=== PATIENT | female | born 1985 | race American Indian/Alaskan Native ===

== ENCOUNTER 2016-07-13 14:17 | Emergency (ER) | payer SELFPAY ==
[2016-07-13 14:59] VITALS: BP 135/78
--- NOTE | 2016-07-13 15:26 | Emergency Department Report ---
Chief Complaint: Dyspnea/Respdistress Stated Complaint: SOB / BACK PAIN Time Seen by Provider: 07/13/16 15:18 - HPI History of Present Illness: 31 y/ female complain of shortness of breath and body ache x 1 day.pt complain of coughing at present . - ROS Review of Systems: per HPI - Exam Vital Signs: Vital Signs 07/13/16 14:54 Temperature 102.4 F H Pulse Rate 128 H Respiratory 24 Rate Blood Pressure 135/78 O2 Sat by Pulse 100 Oximetry Physical Exam: GENERAL: The patient is well-developed and well-nourished. Patient is in NAD. HENT: Normocephalic. Atraumatic. Patient has moist mucous membranes. Throat: No erythema, swelling or exudates. EYES: Extraocular motions are intact, PERRL NECK: Supple. No meningitic signs are noted. There is no adenopathy noted. CHEST/LUNGS: Clear to auscultation bilaterally. No wheezing, rales or rhonchi noted. There is no respiratory distress noted. HEART/CARDIOVASCULAR: Regular rate and rhythm. Normal S1 S2. No murmurs, rubs , clicks, or gallops. ABDOMEN: Abdomen is soft, nontender.. Bowel sounds normoactive. There is no abdominal distention. Negative rebound tenderness. : Deferred. SKIN: There is no rash. There is no edema. There is no diaphoresis. NEURO: The patient is A&Ox3. The patient has no focal neurologic deficits. MUSCULOSKELETAL: There is no tenderness or deformity. There is no limitation range of motion. PSYCH: Pt has appropriate mood and affect. MSE screening note: Focused history and physical exam performed. Due to findings the following was ordered: ED Disposition for MSE Condition: Stable
[2016-07-13] MEDS ORDERED: TORADOL IM ONE (15:29)
[2016-07-13 16:02] LABS: Basophils % (Auto) 0.2 % (0.0-1.8); Eosinophils % (Auto) 0.1 % (0.0-4.3); Hematocrit 38.3 % (30.3-42.9); Mean Corpuscular HGB Conc 32 % (30-34); Mean Corpuscular Volume 73 fl (79-97); Platelet Count 199 K/mm3 (140-440); Red Blood Count 5.23 M/mm3 (3.65-5.03); White Blood Count 6.2 K/mm3 (4.5-11.0)
[2016-07-13 16:19] LABS: Mean Corpuscular Hemoglobin 23 pg (28-32)
[2016-07-13 16:22] LABS: Anion Gap 22 mmol/L; BUN/Creatinine Ratio 11.25; Blood Urea Nitrogen 9 mg/dL (7-17); Calcium 9.3 mg/dL (8.4-10.2); Carbon Dioxide 20 mmol/L (22-30); Chloride 98.1 mmol/L (98-107); Glucose 105 mg/dL (65-100); Potassium 3.7 mmol/L (3.6-5.0); Sodium 136 mmol/L (137-145)
--- NOTE | 2016-07-14 14:39 | ED Elopement Review ---
ED Pt Elopement review - Results review Lab results: Laboratory Tests 07/13/16 07/13/16 15:46 15:46 WBC 6.2 RBC 5.23 H Hgb 12.0 Hct 38.3 MCV 73 L MCH 23 L MCHC 32 RDW 13.0 L Plt Count 199 Lymph % (Auto) 4.4 L [place] % (Auto) 9.2 H Eos % (Auto) 0.1 Baso % (Auto) 0.2 Lymph # 0.3 L [place] # 0.6 Eos # 0.0 Baso # 0.0 Seg Neutrophils % 86.1 H Seg Neutrophils # 5.3 Carbon Dioxide 20 L BUN 9 Creatinine 0.8 Estimated GFR > 60 BUN/Creatinine Ratio 11.25 Glucose 105 H Calcium 9.3 - Call Back decision Pt Call Back Decision: No action required
== END 2016-07-13 22:06 | disposition left against medical advice (07) ==
LOC: ED 14:17
DX: R06.02 Shortness of breath (principal); M79.1 Myalgia; R05 Cough; Z53.21 Procedure and treatment not carried out due to patient leaving prior to being seen by health care provider
CPT/HCPCS: 36415; 80048; 85025; 87400; 93005; 93010; J1885

== ENCOUNTER 2019-03-05 22:24 | Emergency (ER) | payer SELFPAY ==
[2019-03-05] MEDS ORDERED: NACL 0.9% 1000 ML 1,000 ML IV ONE (22:53)
[2019-03-05 23:31] LABS: Basophils % (Auto) 0.7 % (0.0-1.8); Eosinophils # (Auto) 0.3 K/mm3 (0.0-0.4); Eosinophils % (Auto) 5.4 % (0.0-4.3); Hematocrit 38.6 % (30.3-42.9); Hemoglobin 12.5 gm/dl (10.1-14.3); Lymphocytes # (Auto) 2.1 K/mm3 (1.2-5.4); Lymphocytes % (Auto) 40.7 % (13.4-35.0); Mean Corpuscular HGB Conc 33 % (30-34); Mean Corpuscular Volume 74 fl (79-97); Monocytes # (Auto) 0.4 K/mm3 (0.0-0.8); Platelet Count 225 K/mm3 (140-440); Red Blood Count 5.22 M/mm3 (3.65-5.03)
--- NOTE | 2019-03-05 23:37 | Emergency Department Report ---
ED General Adult HPI - General Chief complaint: Dyspnea/Respdistress Stated complaint: SOB,RAPID HEARTBEAT,8WK PREG Time Seen by Provider: 03/05/19 22:50 Source: patient Mode of arrival: Ambulatory Limitations: No Limitations - History of Present Illness Initial comments: Patient is a 33-year-old female who is presenting with 1 week of shortness of breath mostly with exertion. Patient states she has some mild cough as well which is dry and nonproductive. Patient denies any lower extremity swelling or chest pain. Patient is approximately 8 weeks . Patient states during her last she was diagnosed with multiple small pulmonary emboli. Patient was on blood thinners for approximately a year and it was taken off his medications. Patient states she feels similar - Related Data Previous Rx's Medication Instructions Recorded Last Taken Type ALBUTEROL Inhaler (OR & NICU) 2 puff IH QID PRN #1 inhalation 03/06/19 Unknown Rx [ProAir HFA Inhaler] Allergies Allergy/AdvReac Type Severity Reaction Status Date / Time No Known Allergies Allergy Verified 10/26/15 12:02 ED Review of Systems ROS: Stated complaint: SOB,RAPID HEARTBEAT,8WK PREG Other details as noted in HPI Comment: All other systems reviewed and negative ED Past Medical Hx - Past Medical History Previous Medical History?: Yes Hx Hypertension: Yes (after ) Hx Congestive Heart Failure: Yes (after ) Hx Pulmonary Embolism: Yes (after ) - Surgical History Past Surgical History?: Yes Additional Surgical History: - Social History Smoking Status: Never Smoker Substance Use Type: None - Medications Home Medications: Home Medications Medication Instructions Recorded Confirmed Last Taken Type ALBUTEROL Inhaler (OR & NICU) 2 puff IH QID PRN #1 inhalation 03/06/19 Unknown Rx [ProAir HFA Inhaler] ED Physical Exam - General Limitations: No Limitations General appearance: alert, in no apparent distress - Head Head exam: Present: atraumatic, normocephalic - Eye Eye exam: Present: normal appearance, PERRL, EOMI - ENT ENT exam: Present: mucous membranes moist - Neck Neck exam: Present: normal inspection - Respiratory Respiratory exam: Present: normal lung sounds bilaterally. Absent: respiratory distress, wheezes, rales, rhonchi, chest wall tenderness - Cardiovascular Cardiovascular Exam: Present: normal rhythm, tachycardia, normal heart sounds. Absent: systolic murmur, diastolic murmur, rubs, gallop - GI/Abdominal GI/Abdominal exam: Present: soft, normal bowel sounds. Absent: distended, tenderness, guarding, rebound - Extremities Exam Extremities exam: Present: normal inspection - Back Exam Back exam: Present: normal inspection - Neurological Exam Neurological exam: Present: alert, oriented X3 - Psychiatric Psychiatric exam: Present: normal affect, normal mood - Skin Skin exam: Present: warm, dry, intact, normal color. Absent: rash ED Course Vital Signs 03/05/19 22:37 Temperature 98.1 F Pulse Rate 99 H Respiratory 20 Rate Blood Pressure 142/70 O2 Sat by Pulse 100 Oximetry ED Medical Decision Making - Lab Data Result diagrams: 03/05/19 23:03 03/05/19 23:03 - Radiology Data CTA neg for pulm mbolism - Medical Decision Making Cousin the patient has a history of pulmonary embolus and has symptoms that are worrisome for a pulmonary embolus patient was consented for CTA of the chest. Pulmonary embolus was found at this time. Patient also has no infiltrates seen. Patient's was hydrated and will be discharged home with an inhaler to help with her lung capacity. Patient to follow up with her primary care. Critical care attestation.: If time is entered above; I have spent that time in minutes in the direct care of this critically ill patient, excluding procedure time. ED Disposition Clinical Impression: Dyspnea on minimal exertion Disposition: -01 TO HOME OR SELFCARE Is pt being admited?: No Does the pt Need Aspirin: No Condition: Stable Instructions: Dyspnea (ED) Time of Disposition: 00:45
[2019-03-05 23:39] LABS: BUN/Creatinine Ratio 20; Blood Urea Nitrogen 10 mg/dL (7-17); Calcium 9.3 mg/dL (8.4-10.2); Hemolysis Index 8
--- NOTE | 2019-03-06 00:10 | Cat Scan Report ---
CTA CHEST WITH IV CONTRAST INDICATION: MAIN: SOB, tachycardia, History of multiple PE during preg. 100 ML OMNIPAQUE 350. TECHNIQUE: Axial CT images were obtained through the chest after injection of 100 cc Omnipaque 350 IV contrast. 3 plane MIP reconstructions were produced. All CT scans at this location are performed using CT dose reduction for ALARA by means of automated exposure control. COMPARISON: None available. FINDINGS: Contrast opacification is good. Exam is limited secondary to respiratory motion artifact PULMONARY ARTERIES: No pulmonary emboli. THORACIC AORTA: No acute abnormality. HEART: Normal. CORONARY ARTERIES: No significant calcification. PLEURA: No pleural effusion. No pneumothorax. LYMPH NODES: No significant adenopathy. LUNGS: No acute air space or interstitial disease. ADDITIONAL FINDINGS: None. UPPER ABDOMEN: No acute findings. SKELETAL STRUCTURES: No significant osseous abnormality. IMPRESSION: 1. No CT evidence for pulmonary embolism. 2. No acute findings. Signer Name: Refugio Christian MD Signed: 03/06/2019 12:05 AM Workstation Name: [id number]
[2019-03-06 01:51] VITALS: BP 136/89
== END 2019-03-06 00:55 | disposition home or self-care (01) ==
LOC: ED 22:24
DX: R06.00 Dyspnea, unspecified (principal)
CPT/HCPCS: 36415; 71275; 80048; 83880; 84484; 85025; 93005; 93010; 96360; 99284; J7030; Q9967

== ENCOUNTER 2019-07-27 11:01 | Emergency (ER) | payer MEDICAID ==
[2019-07-27 11:18] VITALS: BP 141/93
[2019-07-27] MEDS ORDERED: ACETAMINOPHEN 325 MG TAB ONE (12:56)
--- NOTE | 2019-07-27 12:57 | Event Note ---
ED Screening Note Date of service: 07/27/19 Time: 12:53 ED Screening Note: 34 y o f presents with fever x 1 day cc of flank pain with carrasco, This initial assessment/diagnostic orders/clinical plan/treatment(s) is/are subject to change based on patients health status, clinical progression and re- assessment by fellow clinical providers in the ED. Further treatment and workup at subsequent clinical providers discretion. Patient/guardian urged not to elope from the ED as their condition may be serious if not clinically assessed and managed. Initial orders include: fever 103 in triage, tylenol in traige labs, ua, upt, cxr acc eval
[2019-07-27] MEDS ORDERED: IBUPROFEN 800 MG TAB PO ONE (13:32)
--- NOTE | 2019-07-27 13:33 | Emergency Department Report ---
Minor Respiratory - HPI Chief Complaint: Back Pain/Injury Stated Complaint: FLU SYM 2DAYS/LOWER BACK PAIN Time Seen by Provider: 07/27/19 13:29 Duration: 2 Days Pain Location: Chest Severity: moderate Minor Respiratory: Yes Able to Tolerate Fluids, Yes Cough, Yes Sick Contacts, Yes Fever, No Rhinorrhea, No Sore Throat, No Ear Pain, No Hemoptysis, No Chest Pain, No Shortness of Breath Other History: 34 yo comes to ER with 2 day hx of fever, mild cough and myalgia. Febrile but non ill appearing on admit to the [facility]. ED Review of Systems ROS: Stated complaint: FLU SYM 2DAYS/LOWER BACK PAIN Other details as noted in HPI Comment: All other systems reviewed and negative ED Past Medical Hx - Past Medical History Previous Medical History?: Yes Hx Hypertension: Yes (after ) Hx Congestive Heart Failure: Yes (after ) Hx Pulmonary Embolism: Yes (after ) - Surgical History Past Surgical History?: Yes Additional Surgical History: - Social History Smoking Status: Never Smoker Substance Use Type: None - Medications Home Medications: Home Medications Medication Instructions Recorded Confirmed Last Taken Type Albuterol INH(or & Nicu Only) 2 puff IH QID PRN #1 inhalation 07/27/19 Unknown Rx [ProAir HFA Inhaler] Azithromycin [Zithromax Z-NANCY] 250 mg PO DAILY #6 tablet 07/27/19 Unknown Rx Benzonatate [Tessalon Perles] 100 mg PO Q12H PRN #20 capsule 07/27/19 Unknown Rx Fluticasone [Flonase] 1 spray NS QDAY #1 bottle 07/27/19 Unknown Rx Minor Respiratory Exam - Exam General: Vital signs noted. No distress. Alert and acting appropriately. HEENT: Yes Pharyngeal Erythema, Yes Moist Mucous Membranes, No Pharyngeal Exudates, No Rhinorrhea, No Conjuctival Injection, No Frontal Tenderness, No Maxillary Tenderness Ear: Neither TM Bulge, Neither TM Erythema, Neither EAC Pain, Neither EAC Discharge Neck: Yes Supple, No Adenopathy Lungs: Yes Good Air Exchange, No Wheezes, No Ronchi, No Stridor, No Cough, No Labored Respirations, No Retractions, No Use of Accessory Muscles, No Other Abnormal Lung Sounds Heart: Yes Regular, No Murmur Abdomen: Yes Normal Bowel Sounds, No Tenderness, No Peritoneal Signs Skin: No Rash, No Edema Neurologic: Alert and oriented, no deficits. Musculoskeletal: Unremarkable. ED Course Vital Signs 07/27/19 07/27/19 11:08 12:52 Temperature 101.0 F H 103.0 F H Pulse Rate 122 H 134 H Respiratory 18 Rate Blood Pressure 141/93 O2 Sat by Pulse 100 Oximetry ED Medical Decision Making - Radiology Data Radiology results: report reviewed, image reviewed - Medical Decision Making Labs 07/27/19 Unknown Ur Reducing Substances Not Reportable Urine Bilirubin Neg Urine Ictotest Not Reportable Urine RBC (Auto) 4.0 U Epithel Cells (Auto) 4.0 Urine HCG, Qual Negative Vital Signs 07/27/19 07/27/19 11:08 12:52 Temperature 101.0 F H 103.0 F H Pulse Rate 122 H 134 H Respiratory 18 Rate Blood Pressure 141/93 O2 Sat by Pulse 100 Oximetry xray noted medicated in ER dc home with dc instructions for interval follow up in 48 hours. ambulatory taking po - Differential Diagnosis uri/pna/bronchitis/influenza Critical care attestation.: If time is entered above; I have spent that time in minutes in the direct care of this critically ill patient, excluding procedure time. ED Disposition Clinical Impression: Fever, URTI (acute upper respiratory infection), PNA (pneumonia) Disposition: DC-01 TO HOME OR SELFCARE Is pt being admited?: No Does the pt Need Aspirin: No Condition: Stable Instructions: Community-acquired Pneumonia (ED) Additional Instructions: STAY WELL HYDRATED MEDS ORDERED TODAY MOTRIN OR TYLENOL OVER THE COUNTER FOR FEVER FOLLOW UP WITH PCP IN 48 HOURS FOR RECHECK REFERRAL BELOW Prescriptions: Fluticasone [Flonase] 1 spray NS QDAY #1 bottle Albuterol INH(or & Nicu Only) [ProAir HFA Inhaler] 2 puff IH QID PRN #1 inhalation PRN Reason: Shortness Of Breath Benzonatate [Tessalon Perles] 100 mg PO Q12H PRN #20 capsule PRN Reason: Cough Azithromycin [Zithromax Z-NANCY] 250 mg PO DAILY #6 tablet Referrals: CHARLES ENNIS MD [Staff Physician] - 3-5 Days Time of Disposition: 13:57
[2019-07-27 13:39] LABS: HCG Qualitative,Urine Negative (Negative)
[2019-07-27 13:41] LABS: Bilirubin,Urine NEG (Negative); Blood,Urine SM (Negative); Color,Urine Yellow (Yellow); Mucus,Urine FEW /HPF; Protein,Urine <15 mg/dL mg/dL (Negative); WBC,Urine < 1.0 /HPF (0.0-6.0)
--- NOTE | 2019-07-27 14:06 | XRay Report ---
CHEST 2 VIEWS INDICATION: fever, cough. COMPARISON: FINDINGS: Support devices: None. Heart: Within normal limits. Lungs: Bronchovascular markings are prominent both bases No acute air space or interstitial disease. Pleura: No significant pleural effusion. No pneumothorax. Additional findings: None. IMPRESSION: 1. Bronchopneumonia both lower lobes. Signer Name: Emanuel New MD Signed: 07/27/2019 2:02 PM Workstation Name: [id number]
[2019-07-27] MEDS ORDERED: SODIUM CHLORIDE 0.9% 1000 ML 1,000 ML IV ONE (14:07)
[2019-07-27] MEDS ORDERED: AZITHROMYCIN 500 MG in SODIUM CHLORIDE 0.9% 250ML 250 ML IV ONE (14:07)
== END 2019-07-27 16:31 | disposition home or self-care (01) ==
LOC: ED 11:01
DX: J06.9 Acute upper respiratory infection, unspecified (principal); J18.9 Pneumonia, unspecified organism; I10 Essential (primary) hypertension; Z98.890 Other specified postprocedural states; Z79.899 Other long term (current) drug therapy
CPT/HCPCS: 71046; 81001; 81025; 96365; 99284; J0456; J7030; J7050